=== PATIENT | female | born 1975 | race Caucasian/White ===

== ENCOUNTER 2018-11-13 13:32 | Outpatient (CLI) | payer OTHER ==
--- NOTE | 2018-11-13 14:29 | XRay Report ---
XRAY LEFT KNEE 3 VIEWS: 11/13/18 13:32:00 CLINICAL: Left knee pain. No comparison. FINDINGS: No fracture or dislocation. The medial and lateral joints are normal. Mild patellofemoral joint arthritis with a superior osteophyte. No joint effusion. Normal soft tissues. IMPRESSION: Mild patellofemoral joint osteoarthritis and otherwise negative.
== END 2018-11-13 13:33 | disposition home or self-care (01) ==
LOC: SPVIMAG 13:32
PROVIDERS: ATTEND Family Medicine
DX: M17.12 Unilateral primary osteoarthritis, left knee (principal)